=== PATIENT | female | born 1940 | race Two or more races ===

== ENCOUNTER 2018-01-28 12:02 | Outpatient (CLI) | payer OTHER ==
[~2018-01-28 12:02] MED LIST: AVAPRO150 MG PO; EVISTA60 MG PO; FOLIC ACID1 MG PO; HYDROCHLOROTHIA25 MG PO; LEVOXYL125 MCG PO; SIMVASTATIN40 MG PO
== END 2018-01-28 15:04 | disposition home or self-care (01) ==
LOC: MAMO-SONO 12:02
DX: Z12.31 Encounter for screening mammogram for malignant neoplasm of breast (principal); Z87.898 Personal history of other specified conditions

== ENCOUNTER 2019-02-10 10:18 | Outpatient (CLI) | payer OTHER | END 2019-02-10 10:25 | disposition home or self-care (01) | LOC: NUCLEAR 10:18 | DX: M81.0 Age-related osteoporosis without current pathological fracture (principal); Z13.820 Encounter for screening for osteoporosis ==

== ENCOUNTER → 2019-02-10 12:09 | Outpatient (CLI) | payer OTHER | END | disposition home or self-care (01) | LOC: RAD 12:09 | DX: I70.0 Atherosclerosis of aorta (principal); I11.9 Hypertensive heart disease without heart failure ==